=== PATIENT | female | born 1965 | race Caucasian/White ===

== ENCOUNTER 2019-02-26 05:43 | Emergency (ER) | payer BC ==
[2019-02-26 06:02] VITALS: BP 138/64; PULSE 77; RESP 18; TEMP 98.2
[2019-02-26] MEDS ORDERED: ACET/COD 300 MG/30 MG STARTER PACK 6 TAB BTL PO STA (06:26)
[2019-02-26] MEDS ORDERED: PENICILLIN VK 500MG STARTER 4 TAB BTL PO STA (06:26)
--- NOTE | 2019-02-26 06:27 | ED ---
ENT HPI - General Chief complaint: Dental/Oral Stated complaint: Dental Pain Time Seen by Provider: 02/26/19 06:07 Source: patient Mode of arrival: ambulatory Limitations: no limitations - History of Present Illness Initial comments: 53-year-old female presenting today for chief complaint of left lower dental pain x 2 days. Patient states that she needs to have the tooth extracted and has problems with that due to a bridge for quite sometime. Patient states that she is out of town from [place] when the pain and swelling of the left lower jaw started. Patient denies swelling below the tongue or of the neck denies fevers like symptoms or difficulty breathing or swallowing. Patient denies any rashes. Patient has no other complaints presented for antibiotic therapy. Remaining review of systems negative upon arrival patient appears well signs of acute distress. - Related Data Previous Rx's Medication Instructions Recorded Penicillin V Potassium [Pen Vee K] 500 mg PO QID 7 Days #28 tablet 02/26/19 Allergies Allergy/AdvReac Type Severity Reaction Status Date / Time Sulfa (Sulfonamide AdvReac Rash/Hives Verified 02/26/19 06:02 Antibiotics) Review of Systems ROS Statement: Those systems with pertinent positive or pertinent negative responses have been documented in the HPI. ROS Other: All systems not noted in ROS Statement are negative. Past Medical History Past Medical History: Cancer, Deep Vein Thrombosis (DVT) Additional Past Medical History / Comment(s): autoimmune issues, cervical cancer, blood clots History of Any Multi-Drug Resistant Organisms: None Reported Past Surgical History: Adenoidectomy, Cholecystectomy, Hysterectomy, Orthopedic Surgery Past Psychological History: No Psychological Hx Reported Smoking Status: Current every day smoker Past Alcohol Use History: Rare Past Drug Use History: Marijuana General Exam - General Exam Comments Initial Comments: General: The patient is awake and alert, in no distress Eye: +3 mm pupils are equal, round and reactive to light, extra-ocular movements are intact. No nystagmus. There is normal conjunctiva bilaterally. No signs of icterus. Ears, nose, mouth and throat: There are moist mucous membranes and no oral lesions. Pain to percussion and gum recession of tooth #22. No swelling below the tongue or below the angle of the mandible. No fluctuant abscess of the adjacent gingiva Neck: The neck is supple, there is no tenderness or JVD. No lymphadenopathy appreciated. Cardiovascular: There is a regular rate and rhythm. No murmur, rub or gallop is appreciated. Respiratory: Lungs are clear to auscultation, respirations are non-labored, breath sounds are equal. No wheezes, stridor, rales, or rhonchi. Musculoskeletal: Normal ROM, no tenderness. Strength 5/5. Sensation intact. Radial pulses equal bilaterally 2+. Neurological: A&O x 3. CN II-XII intact grossly, There are no obvious motor or sensory deficits. Coordination appears grossly intact. Speech is normal. Skin: Skin is warm and dry and no rashes or lesions are noted. Psychiatric: Cooperative, appropriate mood & affect, normal judgment. Limitations: no limitations Course Vital Signs 02/26/19 05:58 Temperature 98.2 F Pulse Rate 77 Respiratory 18 Rate Blood Pressure 138/64 O2 Sat by Pulse 95 Oximetry Medical Decision Making - Medical Decision Making 53-year-old female presents to the emergency department today for chief complaint of dental pain left lower. Tooth number #22 have pain to percussion, gum recession poor dentition overall. Patient Have no evidence of formed abscess. No ludwigs angina signs of symptoms. Patient appears nontoxic. Will be discharged with outpatient dental f/u and oral antibiotic. Patient discharged appearing well. Disposition Clinical Impression: Pain, dental Disposition: HOME SELF-CARE Condition: Good Instructions (If sedation given, give patient instructions): Dental Abscess (ED) Additional Instructions: Please use medication as discussed. Please follow-up with dentist within next week, to truly be extracted or have further management. If you develop fever, swelling of the neck difficulty breathing swelling below tongue please return to emergency department. Please return to emergency room if the symptoms increase or worsen or for any other concerns. Prescriptions: Penicillin V Potassium [Pen Vee K] 500 mg PO QID 7 Days #28 tablet Is patient prescribed a controlled substance at d/c from ED?: No Referrals: Nonstaff,Physician [Primary Care Provider] - 1-2 days Time of Disposition: 06:27
== END 2019-02-26 06:42 | disposition home or self-care (01) ==
LOC: EC 05:43
DX: K08.89 Other specified disorders of teeth and supporting structures (principal); K00.7 Teething syndrome; F17.200 Nicotine dependence, unspecified, uncomplicated; Z85.41 Personal history of malignant neoplasm of cervix uteri; Z86.718 Personal history of other venous thrombosis and embolism; Z88.2 Allergy status to sulfonamides
CPT/HCPCS: 99282